=== PATIENT | female | born 1965 | race Caucasian/White ===

== ENCOUNTER → 2018-04-22 | Outpatient (CLI) | payer MEDICARE, MEDICAID ==
[~2018-04-22] MED LIST: CIPRO500 MG PO; FIORICET 325 MG1 TAB PO; ZOFRAN ODT8 MG PO
== END | disposition home or self-care (01) ==
LOC: US 13:30
DX: R60.0 Localized edema (principal); M79.89 Other specified soft tissue disorders

== ENCOUNTER 2018-07-24 14:17 | Emergency (ER) | payer MEDICARE, MEDICAID ==
[~2018-07-24] VITALS: Ht 160 cm; Wt 45.8 kg
== END 2018-07-24 15:35 | disposition home or self-care (01) ==
LOC: ED 14:17
DX: M79.89 Other specified soft tissue disorders (principal); Z91.041 Radiographic dye allergy status

== ENCOUNTER 2022-07-06 21:08 | Emergency (ER) | payer MEDICARE, MEDICAID ==
[~2022-07-06] VITALS: Ht 160 cm; Wt 55.3 kg
[2022-07-06 22:54] LABS: BASO % 0.2 % (0.0-1.0); EOS % 0.2 % (1.0-4.0); HEMATOCRIT 38.9 % (37.0-47.0); LYMPH # 1.7 10*3/uL (1.3-4.4); LYMPH % 31.3 % (27.0-41.0); MEAN CELL VOLUME 93.1 fl (81.0-99.0); MEAN CORPUSCULAR HGB 31.8 pg (27.0-31.0); MEAN CORPUSCULAR HGB CONC 34.2 g/dl (33.0-37.0); MEAN PLATELET VOLUME 10.2 fl (9.6-12.3); MONO # 0.4 10*3/uL (0.1-1.0); MONO % 6.6 % (3.0-9.0); NEUT # 3.2 10*3/uL (2.3-7.9); NEUT % 61.5 % (47.0-73.0); PLATELET COUNT AUTOMATED 228 10*3/uL (130-400); RED BLOOD COUNT 4.18 10*6/uL (4.10-5.10); RED CELL DISTRI WIDTH 13.6 % (0-14.5); WHITE BLOOD COUNT 5.3 10*3/uL (4.8-10.8)
[2022-07-06 23:11] LABS: ALKALINE PHOSPHATASE 70 U/L (46-116); CHLORIDE 100 mmol/L (98-107); CREATININE 0.76 mg/dL (0.55-1.02); POTASSIUM 2.6 mmol/L (3.4-5.1); SGPT/ALT 19 U/L (10-49); SODIUM 140 mmol/L (136-145)
[2022-07-06 23:12] LABS: TOTAL PROTEIN 6.5 gm/dL (6.0-8.0)
[2022-07-06 23:13] LABS: BUN < 5 mg/dl (9-23)
[2022-07-07 02:08] LABS: BILIRUBIN Negative (Negative); BLOOD 2+ (Negative); CLARITY Clear (Clear); COLOR Yellow (Yellow); GLUCOSE Negative (Negative); KETONE Negative (Negative); LEUKO ESTERASE Negative (Negative); NITRITE Negative (Negative); PH 6.5 (4.5-8.0)
[2022-07-07 02:25] LABS: RBC 31-40 rbc/hpf (0-2); WBC 0-2 wbc/hpf (0-5)
[2022-07-07 09:13] LABS: CHLORIDE 105 mmol/L (98-107); POTASSIUM 3.1 mmol/L (3.4-5.1); SODIUM 140 mmol/L (136-145)
[2022-07-07 09:19] LABS: BUN 5 mg/dl (9-23); CREATININE 0.65 mg/dL (0.55-1.02)
[2022-07-07] MEDS ORDERED: ONDANSETRON4 MG SL (12:17)
== END 2022-07-07 12:53 | disposition home or self-care (01) ==
LOC: ED 21:08
PROVIDERS: Emergency Medicine; Family Medicine
DX: E87.6 Hypokalemia (principal); Z91.040 Latex allergy status; Z98.51 Tubal ligation status

== ENCOUNTER 2024-06-13 11:48 | Emergency (ER) | payer MEDICARE, MEDICAID ==
[~2024-06-13] VITALS: Ht 160 cm; Wt 56.7 kg
[~2024-06-13 11:48] MED LIST changes: +ONDANSETRON4 MG SL
[2024-06-13] MEDS ORDERED: ASPIRIN ADULT L81 M2 PO (12:26)
[2024-06-13] MEDS ORDERED: ATORVASTATIN CA10 M1 PO (12:26)
[2024-06-13] MEDS ORDERED: ACETAMINOPHEN 325 MG TAB PO ONE (12:35)
== END 2024-06-13 13:30 | disposition home or self-care (01) ==
LOC: ED 11:48
DX: S86.911A Strain of unspecified muscle(s) and tendon(s) at lower leg level, right leg, initial encounter (principal); E78.5 Hyperlipidemia, unspecified; F32.A Depression, unspecified; Z91.041 Radiographic dye allergy status; Z98.890 Other specified postprocedural states; X58.XXXA Exposure to other specified factors, initial encounter; Y93.89 Activity, other specified; Y92.009 Unspecified place in unspecified non-institutional (private) residence as the place of occurrence of the external cause; Y99.8 Other external cause status